=== PATIENT | female | born 1970 | race Caucasian/White ===

== ENCOUNTER → 2022-09-07 13:09 | Outpatient (BNVA) | payer MEDICARE, MEDICAID, SELFPAY | PROVIDERS: PCP Nurse Practitioner; Visit Provider Thoracic Surgery (Cardiothoracic Vascular Surgery) | DX: L03.116 Cellulitis of left lower limb (principal); L97.322 Non-pressure chronic ulcer of left ankle with fat layer exposed; L97.822 Non-pressure chronic ulcer of other part of left lower leg with fat layer exposed | CPT/HCPCS: 11042; 97597; 99213; A6212 ×2 ==

== ENCOUNTER → 2022-10-24 10:32 | Outpatient (BNVA) | payer MEDICARE, MEDICAID, SELFPAY | PROVIDERS: PCP Family Medicine; Visit Provider Podiatrist Foot & Ankle Surgery | DX: I73.9 Peripheral vascular disease, unspecified (principal); L97.329 Non-pressure chronic ulcer of left ankle with unspecified severity | CPT/HCPCS: 73610; 99204 ==

== ENCOUNTER → 2022-12-13 13:44 | Outpatient (BNVA) | payer MEDICARE, MEDICAID, SELFPAY | PROVIDERS: PCP Family Medicine; Visit Provider Internal Medicine | DX: L97.309 Non-pressure chronic ulcer of unspecified ankle with unspecified severity (principal); F17.200 Nicotine dependence, unspecified, uncomplicated | CPT/HCPCS: 93005; 99204 ==

== ENCOUNTER 2023-01-20 09:09 | Outpatient (CLI) | payer MEDICARE, MEDICAID, SELFPAY ==
--- NOTE | 2023-01-20 11:15 | USCV_ITS ---
Jesijamey Faviola Age: 52 Gender: F : 1970 Exam Date: 01/20/2023 09:57 Ordering Phys: Liam Bean M.D ([email or web address]) Technologist: Exam Location: [facility] [place] Indication: pad Risk Factors: Previous Vascular Surgery: RIGHT LEFT BP: 120.0 / 70.00 BP: 120.0/ 70.00 0 0 Waveform Velocity (cm/s) Velocity (cm/s) Waveform Triphasic 79.2 Iliac Prox 69.7 Triphasic Triphasic 76.9 Iliac Mid 78.2 Triphasic Triphasic 93.2 Iliac Distal 78.9 Triphasic Triphasic 77.7 TRANSFER SPECIALIST 76.2 Triphasic Triphasic 80.8 SFA Prox 86.2 Triphasic Triphasic 89.3 SFA Mid 80.5 Triphasic Triphasic 92.4 SFA Dist 100.3 Triphasic Triphasic 55.2 POP 52.3 Triphasic Triphasic 52.0 MENTAL HEALTH CASE MANAGER 71.5 Triphasic Triphasic 48.6 DPA 76.5 Triphasic 1.0 GEOVANNA 1.1 FINDINGS 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 No similar previous studies are available for comparison Dr Andrea Hidalgo MD [facility] (Electronically Signed) Final Date: 21 January 2023 13:51 S
== END 2023-01-20 09:10 | disposition home or self-care (01) ==
LOC: RAD 09:09
PROVIDERS: PCP Family Medicine; Visit Provider Internal Medicine
DX: I73.9 Peripheral vascular disease, unspecified (principal); M79.604 Pain in right leg; M79.605 Pain in left leg
CPT/HCPCS: 93925

== ENCOUNTER 2025-01-28 12:46 | Outpatient (CLI) | payer MEDICAID, MEDICARE, SELFPAY ==
--- NOTE | 2025-01-28 12:56 | XRR_ITS ---
PROCEDURE INFORMATION: Exam: XR Chest Exam date and time: 01/28/2025 1:13 PM Age: 54 years old Clinical indication: Condition or disease; Lung condition and disease; Copd; Complications not specified; Additional info: Abnormal weight loss, nicotine abuse, copd TECHNIQUE: Imaging protocol: Radiologic exam of the chest. Views: 2 views. COMPARISON: No relevant prior studies available. FINDINGS: Lungs: No focal lung consolidation. The lungs are hyperinflated and hyperlucent compatible with chronic obstructive pulmonary disease. Pleural spaces: No pleural effusion. No pneumothorax. Heart/Mediastinum: No cardiomegaly. Bones/joints: No acute bony abnormality. XR/XR chest 2V* [id number] IMPRESSION: No focal lung consolidation.
== END 2025-01-28 12:47 | disposition home or self-care (01) ==
PROVIDERS: PCP Family Medicine; Visit Provider Family Medicine
DX: R63.4 Abnormal weight loss (principal); Z72.0 Tobacco use; I73.9 Peripheral vascular disease, unspecified; R91.8 Other nonspecific abnormal finding of lung field
CPT/HCPCS: 71046; 80053; 84439; 84443; 85025

== ENCOUNTER → 2025-02-26 14:56 | Outpatient (BNVA) | payer MEDICARE, MEDICAID, SELFPAY | PROVIDERS: PCP Family Medicine; Visit Provider Emergency Medicine | DX: R52 Pain, unspecified (principal); W45.8XXA Other foreign body or object entering through skin, initial encounter | CPT/HCPCS: 73140 ==